=== PATIENT | female | born 1965 | race Hispanic/Latino ===

== ENCOUNTER 2017-05-12 09:00 | Inpatient (IN) | payer OTHER ==
[2017-05-07 09:32] VITALS: BP 142/72
[2017-05-07 09:43] LABS: EOSINOPHILS % (AUTO) 3.4 % (0.0-8.0); HEMATOCRIT 37.5 % (36-48); LYMPHOCYTES % (AUTO) 35.8 % (21.0-51.0); MEAN CORPUSCULAR HEMOGLOBIN 28.8 pg (27.0-33.0); MEAN CORPUSCULAR HGB CONC 34.9 g/dL (32.0-36.0); MEAN CORPUSCULAR VOLUME 82.5 fL (79-99); MONOCYTES % (AUTO) 5.7 % (3.0-13.0); NEUTROPHILS % (AUTO) 54.1 % (40.0-77.0); NUCLEATED RED BLOOD CELLS 0.1 % (0.0-0.19); PLATELET COUNT (AUTO) 287 K/uL (130-400); RED BLOOD CELL COUNT(AUTO) 4.55 MIL/uL (4.00-5.50); RED CELL DISTRIBUTION WIDTH 13.3 % (11.0-15.5); WHITE BLOOD COUNT (AUTO) 6.4 K/uL (4.8-10.8)
[2017-05-07 09:50] LABS: CREATININE 0.6 mg/dL (0.5-1.5); POTASSIUM 3.9 mmol/L (3.5-5.1)
[2017-05-12] VITALS (27 sets, daily range): BP systolic 101–140; BP diastolic 60–74
[~2017-05-12] VITALS: Ht 154.9 cm; Wt 89.2 kg
[~2017-05-12 09:00] MED LIST: ATOR40TA71 PO; INSLAN SQ; LOSA50TA37 PO; METF500T6 PO; SITA100T12 PO; SODIUM CHLORIDE 0.9% 1000ML 1,000 ML IV SCH; VANCOMYCIN 1GM+NS 250ML 250 ML IV SCH
[2017-05-12] MEDS ORDERED: CLINDAMYCIN 600 MG/D5% WATER 50 ML IV ONE ×2 (09:48→16:25)
[2017-05-12] MEDS ORDERED: GLYCOPYRROLATE 0.2 MG/ML 5 ML VIAL ONE (10:15)
[2017-05-12] MEDS ORDERED: LIDOCAINE PF 2% 5ML ABBOJECT ONE (10:15)
[2017-05-12] MEDS ORDERED: ONDANSETRON HCL 4 MG/2 ML VIAL ONE (10:15)
[2017-05-12] MEDS ORDERED: LIDOCAINE HCL MPF 1% 5ML VIAL ONE (10:15)
[2017-05-12] MEDS ORDERED: DEXAMETHASONE SOD PHOSPHATE 10MG/ML 1ML VIAL ONE (10:15)
[2017-05-12] MEDS ORDERED: MIDAZOLAM HCL 1 MG/ML 2ML VIAL ONE (10:16)
[2017-05-12] MEDS ORDERED: PROPOFOL 10 MG/ML 20ML VIAL IV ONE ×2 (10:16→14:35)
[2017-05-12] MEDS ORDERED: ROCURONIUM BROMIDE 10MG/1ML 5ML VL ONE ×2 (10:16→11:03)
[2017-05-12] MEDS ORDERED: SODIUM CHLORIDE 0.9% 10 ML VIAL ONE (10:16)
[2017-05-12] MEDS ORDERED: LIDOCAINE HCL 2% JELLY 5 ML ONE (10:16)
[2017-05-12] MEDS ORDERED: FENTANYL CITRATE PF 50 MCG/1 ML 2ML VIAL ONE ×2 (10:16→14:52)
[2017-05-12] MEDS ORDERED: FENTANYL CITRATE PF 50 MCG/1 ML 5ML AMP IV ONE (11:11)
[2017-05-12 14:43] LABS: HEMATOCRIT 32.8 % (36-48)
[2017-05-12 14:48] LABS: CREATININE 0.8 mg/dL (0.5-1.5); POTASSIUM 4.5 mmol/L (3.5-5.1)
[2017-05-12] MEDS ORDERED: MEPERIDINE-PF 50 MG/ML SYG ONE ×2 (15:12→15:37)
[2017-05-12] MEDS ORDERED: ONDANSETRON HCL 4 MG/2 ML VIAL IVP PRN (19:00)
[2017-05-12] MEDS ORDERED: MORPHINE SULFATE 4 MG/1ML SYG IVP PRN (19:00)
[2017-05-12] MEDS ORDERED: MORPHINE SULFATE 2 MG/ML 1ML SYG ONE (20:00)
[2017-05-13] MEDS: CLINDAMYCIN 600 MG/D5% WATER 50 ML IV SCH ×2 (01:39→08:46)
[2017-05-13] MEDS ORDERED: MORPHINE SULFATE 2 MG/ML 1ML SYG ONE (02:25)
[2017-05-13 04:00] VITALS: BP 128/65
[2017-05-13 05:44] LABS: HEMATOCRIT 28.8 % (36-48); MEAN CORPUSCULAR HEMOGLOBIN 29.3 pg (27.0-33.0); MEAN CORPUSCULAR HGB CONC 35.2 g/dL (32.0-36.0); MEAN CORPUSCULAR VOLUME 83.2 fL (79-99); PLATELET COUNT (AUTO) 261 K/uL (130-400); RED BLOOD CELL COUNT(AUTO) 3.47 MIL/uL (4.00-5.50); RED CELL DISTRIBUTION WIDTH 13.5 % (11.0-15.5); WHITE BLOOD COUNT (AUTO) 9.3 K/uL (4.8-10.8)
[2017-05-13 05:53] LABS: CREATININE 0.7 mg/dL (0.5-1.5); POTASSIUM 3.8 mmol/L (3.5-5.1)
[2017-05-13] MEDS ORDERED: CALDOLOR 800MG+NS 250ML 250 ML IV PRN (07:45)
[2017-05-13 08:20] VITALS: BP 142/70
[2017-05-13] MEDS: FAMOTIDINE/PF 20 MG/2 ML VIAL IV SCH ×2 (08:45→20:34)
[2017-05-13] MEDS: LOSARTAN 50 MG TABLET PO SCH (08:46)
[2017-05-13] MEDS: METFORMIN HCL 500 MG TABLET PO SCH ×2 (08:46→20:33)
[2017-05-13] MEDS: LINAGLIPTIN 5 MG TABLET PO SCH (08:49)
[2017-05-13] MEDS: TRAMADOL HCL 50 MG TABLET PO SCH ×3 (08:50→20:34)
[2017-05-13] MEDS: ENOXAPARIN SODIUM 40 MG/0.4 ML SYRINGE SQ SCH (09:58)
[2017-05-13 12:17] VITALS: BP 126/71
[2017-05-13 16:35] VITALS: BP 132/63
[2017-05-13] MEDS: LACTATED RINGERS 1000ML 1,000 ML IV SCH (19:24)
[2017-05-13 20:00] VITALS: BP 111/60
[2017-05-13] MEDS: ATORVASTATIN CALCIUM 40 MG TABLET PO SCH (20:33)
[2017-05-13] MEDS: INSULIN GLARGINE 100 UNITS/ML 10 ML VIAL SQ SCH (20:41)
[2017-05-13] MEDS: LEVOFLOXACIN 500 MG TABLET PO SCH (23:30)
[2017-05-13] MEDS ORDERED: LEVOFLOXACIN 500 MG TABLET ONE (23:37)
[2017-05-14] VITALS: BP 135/75
[2017-05-14] MEDS: TRAMADOL HCL 50 MG TABLET PO SCH ×4 (01:58→21:32)
[2017-05-14] MEDS: LACTATED RINGERS 1000ML 1,000 ML IV SCH ×2 (03:12→11:00)
[2017-05-14 04:00] VITALS: BP 124/66
[2017-05-14] MEDS ORDERED: MORPHINE SULFATE 8 MG/ML VIAL ONE (04:20)
[2017-05-14 07:00] VITALS: BP 118/71
[2017-05-14] MEDS: LINAGLIPTIN 5 MG TABLET PO SCH (08:41)
[2017-05-14] MEDS: METFORMIN HCL 500 MG TABLET PO SCH ×2 (08:41→21:32)
[2017-05-14] MEDS: FAMOTIDINE/PF 20 MG/2 ML VIAL IV SCH ×2 (08:41→21:32)
[2017-05-14] MEDS: LEVOFLOXACIN 500 MG TABLET PO SCH (08:42)
[2017-05-14] MEDS: LOSARTAN 50 MG TABLET PO SCH (08:42)
[2017-05-14] MEDS: ENOXAPARIN SODIUM 40 MG/0.4 ML SYRINGE SQ SCH (08:43)
[2017-05-14 11:00] VITALS: BP 123/69
[2017-05-14 16:00] VITALS: BP 111/70
[2017-05-14 20:41] VITALS: BP 121/61
[2017-05-14] MEDS: IBUPROFEN 800 MG TAB PO SCH (21:33)
[2017-05-14] MEDS: ATORVASTATIN CALCIUM 40 MG TABLET PO SCH (21:33)
[2017-05-14] MEDS: INSULIN GLARGINE 100 UNITS/ML 10 ML VIAL SQ SCH (21:38)
[2017-05-15 00:11] VITALS: BP 129/84
[2017-05-15 00:23] VITALS: BP 120/65
[2017-05-15] MEDS: TRAMADOL HCL 50 MG TABLET PO SCH ×3 (02:13→12:47)
[2017-05-15 04:56] VITALS: BP 130/72
[2017-05-15] MEDS: IBUPROFEN 800 MG TAB PO SCH (06:43)
[2017-05-15 07:00] VITALS: BP 123/69
[2017-05-15] MEDS: LINAGLIPTIN 5 MG TABLET PO SCH (08:35)
[2017-05-15] MEDS: FAMOTIDINE/PF 20 MG/2 ML VIAL IV SCH (08:35)
[2017-05-15] MEDS: LOSARTAN 50 MG TABLET PO SCH (08:35)
[2017-05-15] MEDS: LEVOFLOXACIN 500 MG TABLET PO SCH (08:36)
[2017-05-15] MEDS: METFORMIN HCL 500 MG TABLET PO SCH (08:36)
[2017-05-15] MEDS: ENOXAPARIN SODIUM 40 MG/0.4 ML SYRINGE SQ SCH (08:40)
[2017-05-15 11:00] VITALS: BP 125/64
== END 2017-05-15 17:05 | disposition home health service (06) | DRG 227 ==
LOC: DAH 09:00 → OBSVTOIN 09:01 → DAHIP 09:01 → 4AH 16:16
PROVIDERS: ADMIT Surgery; ATTEND Surgery
PROC: 0WUF0JZ Supplement Abdominal Wall with Synthetic Substitute, Open Approach (ICD-10-PCS; principal; 2017-05-15)
DX: K43.2 Incisional hernia without obstruction or gangrene (principal); E11.9 Type 2 diabetes mellitus without complications; I10 Essential (primary) hypertension; M79.3 Panniculitis, unspecified; Z90.49 Acquired absence of other specified parts of digestive tract; Z90.710 Acquired absence of both cervix and uterus; Z88.0 Allergy status to penicillin
CPT/HCPCS: 36415; 80048; 82948; 85025; 85027; A4344; C1781; J1100; J1650; J2001; J2175; J2250; J2270; J2405; J2704; J3010; J3490; J7030; J7120

== ENCOUNTER 2017-05-27 17:15 | Inpatient (IN) | payer OTHER ==
[~2017-05-27] VITALS: Ht 154.9 cm; Wt 86.2 kg
[~2017-05-27 17:15] MED LIST changes: -SODIUM CHLORIDE 0.9% 1000ML 1,000 ML IV SCH; -VANCOMYCIN 1GM+NS 250ML 250 ML IV SCH
[2017-05-27 18:41] LABS: BASOPHILS % (AUTO) 0.6 % (0.0-5.0); EOSINOPHILS % (AUTO) 2.9 % (0.0-8.0); HEMATOCRIT 26.7 % (36-48); LYMPHOCYTES % (AUTO) 15.8 % (21.0-51.0); MEAN CORPUSCULAR HEMOGLOBIN 28.6 pg (27.0-33.0); MEAN CORPUSCULAR HGB CONC 35.4 g/dL (32.0-36.0); MEAN CORPUSCULAR VOLUME 80.8 fL (79-99); MONOCYTES % (AUTO) 7.2 % (3.0-13.0); NEUTROPHILS % (AUTO) 73.5 % (40.0-77.0); PLATELET COUNT (AUTO) 554 K/uL (130-400); RED CELL DISTRIBUTION WIDTH 13.7 % (11.0-15.5); WHITE BLOOD COUNT (AUTO) 10.7 K/uL (4.8-10.8)
[2017-05-27] MEDS ORDERED: SODIUM CHLORIDE 0.9% 1000ML 3,000 ML IV ONE (18:55)
[2017-05-27 18:56] LABS: CREATININE 0.7 mg/dL (0.5-1.5); POTASSIUM 3.1 mmol/L (3.5-5.1)
[2017-05-27 19:01] LABS: ALBUMIN 2.2 g/dL (3.5-5.0); BILIRUBIN,TOTAL 0.1 mg/dL (0.2-1.0); TOTAL PROTEIN, SERUM 6.4 g/dL (6.0-8.3)
[2017-05-27] MEDS ORDERED: IOPAMIDOL-370 75 ML VIAL IV ONE (19:38)
[2017-05-27] MEDS ORDERED: LEVOFLOXACIN 750 MG/D5W 150 ML 150 ML IV ONE (21:59)
[2017-05-28] VITALS (7 sets, daily range): BP systolic 109–135; BP diastolic 63–75
[2017-05-28] MEDS ORDERED: HYDRALAZINE HCL 20 MG/ML VIAL IV PRN ×2 (00:30→08:00)
[2017-05-28] MEDS ORDERED: POTASSIUM CHLORIDE 10% ELIXIR 20 MEQ/15 ML UDCUP PO PRN (00:30)
[2017-05-28] MEDS ORDERED: MEROPENEM 500MG+NS 50ML 50 ML IV SCH ×2 (00:30→22:00)
[2017-05-28] MEDS ORDERED: SODIUM CHLORIDE 0.9% 1000ML 1,000 ML IV ONE (00:46)
[2017-05-28] MEDS ORDERED: MEROPENEM 500 MG VIAL ONE (00:47)
[2017-05-28] MEDS ORDERED: VANCOMYCIN 1GM+NS 250ML 250 ML IV ONE (00:47)
[2017-05-28 01:20] LABS: APPEARANCE,URINE Clear (CLEAR); BILIRUBIN,URINE Negative (NEGATIVE); COLOR,URINE Yellow (YELLOW); GLUCOSE, URINE (UA) Negative (NEGATIVE); KETONES,URINE 15 mg/dL (NEGATIVE); LEUKOCYTE ESTERASE ,URINE Negative (NEGATIVE); NITRATE,URINE Negative (NEGATIVE); OCCULT BLOOD,URINE Trace (NEGATIVE); PROTEIN,URINE Negative (NEGATIVE); UROBILINOGEN,URINE 0.2 mg/dL (0.2-1.0)
[2017-05-28 01:41] LABS: BACTERIA,URINE Few /HPF (None Seen); SQUAMOUS EPITHELIAL CELL,UR Moderate /LPF (0-2); WBC,URINE 0-1 /HPF (0-1)
[2017-05-28] MEDS: MEPERIDINE-PF 25 MG/ML SYG IVP PRN ×3 (02:27→22:26)
[2017-05-28] MEDS: INSULIN HUMULIN R 100 UNIT/ML 3ML SQ SCH ×4 (05:47→21:22)
[2017-05-28] MEDS: LIDOCAINE HCL-MPF 1% 2ML VIAL IVP PRN ×2 (06:05→13:41)
[2017-05-28] MEDS: POTASSIUM CHLORIDE 20MEQ/100ML 100 ML IV PRN ×2 (06:05→13:41)
[2017-05-28] MEDS ORDERED: GUAIFENESIN-DM 200/20 MG 10 ML PO PRN (08:00)
[2017-05-28] MEDS ORDERED: LACTULOSE 20 GM/30 ML UDCUP PO PRN (08:00)
[2017-05-28] MEDS ORDERED: NITROGLYCERIN 0.4 MG SL TAB SL PRN (08:00)
[2017-05-28] MEDS ORDERED: MAG HYDROX/AL HYDROX/SIMETH ES 30 ML SUSP UDCUP PO PRN (08:00)
[2017-05-28] MEDS ORDERED: MORPHINE SULFATE 2 MG/ML 1ML SYG IV PRN (08:00)
[2017-05-28] MEDS ORDERED: MORPHINE SULFATE 4 MG/1ML SYG IV PRN (08:00)
[2017-05-28] MEDS ORDERED: ACETAMINOPHEN 325 MG TAB PO PRN ×2 (08:00)
[2017-05-28] MEDS ORDERED: ACETAMINOPHEN-CODEINE 300/30MG TAB PO PRN ×2 (08:00)
[2017-05-28] MEDS: LOSARTAN 50 MG TABLET PO SCH (09:00)
[2017-05-28] MEDS ORDERED: FAMOTIDINE/PF 20 MG/2 ML VIAL IV SCH (09:00)
[2017-05-28] MEDS: ATORVASTATIN CALCIUM 40 MG TABLET PO SCH (09:00)
[2017-05-28] MEDS: SODIUM CHLORIDE 0.9% 1000ML 1,000 ML IV SCH ×3 (10:18→22:01)
[2017-05-28] MEDS: FAMOTIDINE/PF 20 MG/2 ML VIAL IV SCH ×2 (10:19→22:03)
[2017-05-28] MEDS: ONDANSETRON HCL 4 MG/2 ML VIAL IV PRN (13:41)
[2017-05-28] MEDS ORDERED: VANCOMYCIN PROTOCOL PER PHARMACY IV SCH (19:45)
[2017-05-28] MEDS ORDERED: COMPOUND IV REFRIGERATED 1 EACH IVSOLN MISC PRN (20:00)
[2017-05-28] MEDS: MEROPENEM 500 MG VIAL IVP SCH (22:01)
[2017-05-28] MEDS: VANCOMYCIN 1.25 GM in SODIUM CHLORIDE 0.9% 250 ML IV SCH (22:09)
[2017-05-29] MEDS: POTASSIUM CHLORIDE 20MEQ/100ML 100 ML IV PRN ×3 (00:28→15:12)
[2017-05-29 03:35] VITALS: BP 119/71
[2017-05-29 04:23] LABS: HEMATOCRIT 24.6 % (36-48); MEAN CORPUSCULAR HEMOGLOBIN 27.4 pg (27.0-33.0); MEAN CORPUSCULAR VOLUME 80.3 fL (79-99); PLATELET COUNT (AUTO) 555 K/uL (130-400); RED BLOOD CELL COUNT(AUTO) 3.06 MIL/uL (4.00-5.50); RED CELL DISTRIBUTION WIDTH 13.7 % (11.0-15.5); WHITE BLOOD COUNT (AUTO) 7.5 K/uL (4.8-10.8)
[2017-05-29 04:36] LABS: CREATININE 0.6 mg/dL (0.5-1.5); POTASSIUM 3.4 mmol/L (3.5-5.1)
[2017-05-29] MEDS: MEROPENEM 500 MG VIAL IVP SCH ×3 (05:09→21:48)
[2017-05-29] MEDS: SODIUM CHLORIDE 0.9% 1000ML 1,000 ML IV SCH (05:10)
[2017-05-29] MEDS: INSULIN HUMULIN R 100 UNIT/ML 3ML SQ SCH ×3 (06:00→17:25)
[2017-05-29 07:16] VITALS: BP 131/69
[2017-05-29] MEDS: FAMOTIDINE/PF 20 MG/2 ML VIAL IV SCH ×2 (08:19→21:48)
[2017-05-29] MEDS: LOSARTAN 50 MG TABLET PO SCH (08:19)
[2017-05-29] MEDS: ATORVASTATIN CALCIUM 40 MG TABLET PO SCH (08:19)
[2017-05-29 08:23] LABS: RETICULOCYTE % (AUTO) 2.52 % (0.42-2.23)
[2017-05-29 09:05] LABS: % IRON SATURATION 7.9 % (22-44)
[2017-05-29] MEDS: VANCOMYCIN 1.25 GM in SODIUM CHLORIDE 0.9% 250 ML IV SCH ×2 (10:34→22:02)
[2017-05-29 11:26] VITALS: BP 127/66
[2017-05-29] MEDS: ONDANSETRON HCL 4 MG/2 ML VIAL IV PRN (15:11)
[2017-05-29] MEDS: MEPERIDINE-PF 25 MG/ML SYG IVP PRN ×2 (15:11→21:47)
[2017-05-29] MEDS: LIDOCAINE HCL-MPF 1% 2ML VIAL IVP PRN (15:12)
[2017-05-29 16:00] VITALS: BP_SYST 128; BP_SYST 141; BP_DIAS 64; BP_DIAS 82
[2017-05-29 19:00] VITALS: BP 125/62
[2017-05-29] MEDS: INSULIN GLARGINE 100 UNITS/ML 10 ML VIAL SQ SCH (21:55)
[2017-05-29 23:15] VITALS: BP 123/67
[2017-05-30 03:20] VITALS: BP 118/70
[2017-05-30 03:49] LABS: HEMATOCRIT 23.7 % (36-48); MEAN CORPUSCULAR HEMOGLOBIN 28.4 pg (27.0-33.0); MEAN CORPUSCULAR HGB CONC 35.4 g/dL (32.0-36.0); MEAN CORPUSCULAR VOLUME 80.5 fL (79-99); PLATELET COUNT (AUTO) 542 K/uL (130-400); RED BLOOD CELL COUNT(AUTO) 2.94 MIL/uL (4.00-5.50); RED CELL DISTRIBUTION WIDTH 13.8 % (11.0-15.5); WHITE BLOOD COUNT (AUTO) 7.2 K/uL (4.8-10.8)
[2017-05-30 04:00] LABS: CREATININE 0.5 mg/dL (0.5-1.5); POTASSIUM 3.2 mmol/L (3.5-5.1)
[2017-05-30] MEDS: MEROPENEM 500 MG VIAL IVP SCH ×3 (05:06→21:21)
[2017-05-30] MEDS: POTASSIUM CHLORIDE 20MEQ/100ML 100 ML IV PRN (05:07)
[2017-05-30] MEDS: INSULIN HUMULIN R 100 UNIT/ML 3ML SQ SCH ×5 (06:00→21:00)
[2017-05-30 08:00] VITALS: BP_SYST 112; BP_SYST 144; BP_DIAS 69; BP_DIAS 78
[2017-05-30] MEDS: VANCOMYCIN 1.25 GM in SODIUM CHLORIDE 0.9% 250 ML IV SCH ×2 (09:16→21:27)
[2017-05-30] MEDS: FAMOTIDINE/PF 20 MG/2 ML VIAL IV SCH ×2 (09:17→21:21)
[2017-05-30] MEDS: MEPERIDINE-PF 25 MG/ML SYG IVP PRN ×2 (09:18→21:31)
[2017-05-30] MEDS: ATORVASTATIN CALCIUM 40 MG TABLET PO SCH (09:22)
[2017-05-30] MEDS: LOSARTAN 50 MG TABLET PO SCH (09:22)
[2017-05-30] MEDS: POTASSIUM CHLORIDE 20 MEQ ERTAB PO PRN ×2 (09:23→19:35)
[2017-05-30] MEDS: ENOXAPARIN SODIUM 40 MG/0.4 ML SYRINGE SQ SCH (09:28)
[2017-05-30 12:00] VITALS: BP 139/75
[2017-05-30 16:00] VITALS: BP 139/77
[2017-05-30 19:45] VITALS: BP 145/78
[2017-05-30] MEDS: INSULIN GLARGINE 100 UNITS/ML 10 ML VIAL SQ SCH (21:37)
[2017-05-30] MEDS ORDERED: INSULIN GLARGINE 100 UNITS/ML 10 ML VIAL SQ ONE (21:38)
[2017-05-30 23:59] VITALS: BP 125/65
[2017-05-31] MEDS: POTASSIUM CHLORIDE 20MEQ/100ML 100 ML IV PRN (00:31)
[2017-05-31 03:56] VITALS: BP 122/68
[2017-05-31 04:30] LABS: CREATININE 0.5 mg/dL (0.5-1.5); POTASSIUM 3.7 mmol/L (3.5-5.1)
[2017-05-31] MEDS: MEROPENEM 500 MG VIAL IVP SCH ×3 (05:13→20:45)
[2017-05-31] MEDS: INSULIN HUMULIN R 100 UNIT/ML 3ML SQ SCH ×4 (06:00→20:53)
[2017-05-31 08:00] VITALS: BP 146/74
[2017-05-31] MEDS: VANCOMYCIN 1.25 GM in SODIUM CHLORIDE 0.9% 250 ML IV SCH ×2 (10:01→20:58)
[2017-05-31] MEDS: FAMOTIDINE/PF 20 MG/2 ML VIAL IV SCH ×2 (10:02→20:45)
[2017-05-31] MEDS: LOSARTAN 50 MG TABLET PO SCH (10:05)
[2017-05-31] MEDS: ENOXAPARIN SODIUM 40 MG/0.4 ML SYRINGE SQ SCH (10:05)
[2017-05-31] MEDS: ATORVASTATIN CALCIUM 40 MG TABLET PO SCH (10:05)
[2017-05-31 11:56] VITALS: BP 127/73
[2017-05-31 16:00] VITALS: BP 124/70
[2017-05-31 19:30] VITALS: BP 130/74
[2017-05-31] MEDS ORDERED: MEPERIDINE HCL/PF 25 MG/ML 1ML VIAL IVP PRN (20:18)
[2017-05-31] MEDS: INSULIN GLARGINE 100 UNITS/ML 10 ML VIAL SQ SCH (20:52)
[2017-05-31] MEDS: MEPERIDINE HCL/PF 25 MG/0.5 ML AMPUL IVP PRN (20:58)
[2017-05-31] MEDS ORDERED: INSULIN GLARGINE 100 UNITS/ML 10 ML VIAL SQ ONE (22:03)
[2017-05-31 23:00] VITALS: BP 131/69
[2017-06-01 03:28] VITALS: BP 124/66
[2017-06-01] MEDS: MEROPENEM 500 MG VIAL IVP SCH ×3 (04:59→20:57)
[2017-06-01] MEDS: INSULIN HUMULIN R 100 UNIT/ML 3ML SQ SCH ×4 (06:00→21:13)
[2017-06-01 07:30] VITALS: BP 128/76
[2017-06-01] MEDS: VANCOMYCIN 1.25 GM in SODIUM CHLORIDE 0.9% 250 ML IV SCH ×2 (08:22→20:58)
[2017-06-01] MEDS: ENOXAPARIN SODIUM 40 MG/0.4 ML SYRINGE SQ SCH (08:24)
[2017-06-01] MEDS: ATORVASTATIN CALCIUM 40 MG TABLET PO SCH (08:25)
[2017-06-01] MEDS: FAMOTIDINE/PF 20 MG/2 ML VIAL IV SCH ×2 (08:25→20:57)
[2017-06-01] MEDS: LOSARTAN 50 MG TABLET PO SCH (08:25)
[2017-06-01] MEDS: MEPERIDINE HCL/PF 25 MG/0.5 ML AMPUL IVP PRN (08:26)
[2017-06-01 11:00] VITALS: BP 132/67
[2017-06-01 16:00] VITALS: BP 142/77
[2017-06-01 20:00] VITALS: BP_SYST 115; BP_SYST 138; BP_DIAS 59; BP_DIAS 74
[2017-06-01] MEDS: INSULIN GLARGINE 100 UNITS/ML 10 ML VIAL SQ SCH (20:59)
[2017-06-01 23:37] VITALS: BP 115/59
[2017-06-02] MEDS: MEROPENEM 500 MG VIAL IVP SCH ×2 (03:25→11:20)
[2017-06-02 04:22] VITALS: BP 113/70
[2017-06-02] MEDS: INSULIN HUMULIN R 100 UNIT/ML 3ML SQ SCH ×5 (07:30→22:20)
[2017-06-02 08:00] VITALS: BP 148/79
[2017-06-02] MEDS: FAMOTIDINE/PF 20 MG/2 ML VIAL IV SCH ×2 (10:01→20:20)
[2017-06-02] MEDS: ATORVASTATIN CALCIUM 40 MG TABLET PO SCH (10:01)
[2017-06-02] MEDS: LOSARTAN 50 MG TABLET PO SCH (10:01)
[2017-06-02] MEDS: ENOXAPARIN SODIUM 40 MG/0.4 ML SYRINGE SQ SCH (10:02)
[2017-06-02] MEDS: VANCOMYCIN 1.25 GM in SODIUM CHLORIDE 0.9% 250 ML IV SCH ×2 (10:03→20:20)
[2017-06-02] MEDS: MEPERIDINE HCL/PF 25 MG/0.5 ML AMPUL IVP PRN ×2 (10:05→20:21)
[2017-06-02 11:00] VITALS: BP 125/56
[2017-06-02 16:00] VITALS: BP 142/78
[2017-06-02 20:00] VITALS: BP 148/82
[2017-06-02] MEDS: INSULIN GLARGINE 100 UNITS/ML 10 ML VIAL SQ SCH (22:19)
[2017-06-03] VITALS: BP 126/72
[2017-06-03 03:50] LABS: HEMATOCRIT 24.7 % (36-48); MEAN CORPUSCULAR HEMOGLOBIN 27.8 pg (27.0-33.0); MEAN CORPUSCULAR HGB CONC 35.2 g/dL (32.0-36.0); MEAN CORPUSCULAR VOLUME 78.9 fL (79-99); PLATELET COUNT (AUTO) 468 K/uL (130-400); RED BLOOD CELL COUNT(AUTO) 3.13 MIL/uL (4.00-5.50); WHITE BLOOD COUNT (AUTO) 6.3 K/uL (4.8-10.8)
[2017-06-03 03:56] LABS: CREATININE 0.5 mg/dL (0.5-1.5); POTASSIUM 3.7 mmol/L (3.5-5.1)
[2017-06-03 04:00] VITALS: BP 119/66
[2017-06-03] MEDS: INSULIN HUMULIN R 100 UNIT/ML 3ML SQ SCH ×3 (06:12→16:21)
[2017-06-03] MEDS ORDERED: ACET1TAB12 PO (07:38)
[2017-06-03 07:59] VITALS: BP 140/66
[2017-06-03] MEDS: ATORVASTATIN CALCIUM 40 MG TABLET PO SCH (08:19)
[2017-06-03] MEDS: LOSARTAN 50 MG TABLET PO SCH (08:19)
[2017-06-03] MEDS: FAMOTIDINE/PF 20 MG/2 ML VIAL IV SCH (08:19)
[2017-06-03] MEDS: ENOXAPARIN SODIUM 40 MG/0.4 ML SYRINGE SQ SCH (08:20)
[2017-06-03] MEDS: VANCOMYCIN 1.25 GM in SODIUM CHLORIDE 0.9% 250 ML IV SCH (08:20)
[2017-06-03] MEDS: MEPERIDINE HCL/PF 25 MG/0.5 ML AMPUL IVP PRN (09:21)
[2017-06-03 11:00] VITALS: BP 126/67
[2017-06-03 16:00] VITALS: BP 140/75
== END 2017-06-03 17:16 | disposition home or self-care (01) | DRG 463 ==
LOC: EDH 17:15 → OBSVTOIN 22:10 → EDHIP 22:10 → 3AH 05-28 01:07
PROVIDERS: ADMIT Family Medicine; ATTEND Family Medicine
DX: N12 Tubulo-interstitial nephritis, not specified as acute or chronic (principal); L02.211 Cutaneous abscess of abdominal wall; K43.9 Ventral hernia without obstruction or gangrene; E11.9 Type 2 diabetes mellitus without complications; E78.5 Hyperlipidemia, unspecified; I10 Essential (primary) hypertension; Z68.35 Body mass index [BMI] 35.0-35.9, adult; E66.9 Obesity, unspecified; Z88.0 Allergy status to penicillin; M79.3 Panniculitis, unspecified; Z28.21 Immunization not carried out because of patient refusal
CPT/HCPCS: 36415; 74177; 80048; 80053; 80202; 81001; 82607; 82728; 82746; 82948; 83605; 84132; 85025; 85027; 87071; 87088; 87205; A4218; J1650; J1815; J1956; J2175; J2185; J2405; J3370; J3480; J3490; J7030; Q9967

== ENCOUNTER 2017-06-06 08:57 | Emergency (ER) | payer OTHER ==
[~2017-06-06 08:57] MED LIST changes: +ACET1TAB12 PO
[2017-06-06 09:33] LABS: APPEARANCE,URINE Clear (CLEAR); BILIRUBIN,URINE Negative (NEGATIVE); COLOR,URINE Yellow (YELLOW); GLUCOSE, URINE (UA) Negative (NEGATIVE); KETONES,URINE Negative (NEGATIVE); LEUKOCYTE ESTERASE ,URINE Trace (NEGATIVE); NITRATE,URINE Negative (NEGATIVE); OCCULT BLOOD,URINE Small (NEGATIVE); PROTEIN,URINE Trace (NEGATIVE); UROBILINOGEN,URINE 0.2 mg/dL (0.2-1.0)
[2017-06-06 09:34] LABS: BASOPHILS % (AUTO) 0.7 % (0.0-5.0); EOSINOPHILS % (AUTO) 4.8 % (0.0-8.0); HEMATOCRIT 30.7 % (36-48); LYMPHOCYTES % (AUTO) 19.6 % (21.0-51.0); MEAN CORPUSCULAR HEMOGLOBIN 26.2 pg (27.0-33.0); MEAN CORPUSCULAR HGB CONC 33.4 g/dL (32.0-36.0); MEAN CORPUSCULAR VOLUME 78.3 fL (79-99); NEUTROPHILS % (AUTO) 68.9 % (40.0-77.0); PLATELET COUNT (AUTO) 522 K/uL (130-400); RED BLOOD CELL COUNT(AUTO) 3.93 MIL/uL (4.00-5.50); RED CELL DISTRIBUTION WIDTH 14.2 % (11.0-15.5); WHITE BLOOD COUNT (AUTO) 6.8 K/uL (4.8-10.8)
[2017-06-06 09:37] LABS: CREATININE 0.6 mg/dL (0.5-1.5); POTASSIUM 3.9 mmol/L (3.5-5.1)
[2017-06-06 09:44] LABS: ALBUMIN 2.7 g/dL (3.5-5.0); BILIRUBIN,TOTAL 0.3 mg/dL (0.2-1.0); TOTAL PROTEIN, SERUM 7.3 g/dL (6.0-8.3)
[2017-06-06 10:09] LABS: BACTERIA,URINE Few /HPF (None Seen); SQUAMOUS EPITHELIAL CELL,UR 0-2 /LPF (0-2)
[2017-06-06] MEDS ORDERED: ONDANSETRON HCL 4 MG/2 ML VIAL ONE (10:33)
[2017-06-06] MEDS ORDERED: MEPERIDINE-PF 50 MG/ML SYG ONE (10:34)
[2017-06-06] MEDS ORDERED: IOPAMIDOL-370 75 ML VIAL IV ONE (11:01)
== END 2017-06-06 13:36 | disposition home or self-care (01) ==
LOC: EDH 08:57
DX: T81.89XA Other complications of procedures, not elsewhere classified, initial encounter (principal); E11.9 Type 2 diabetes mellitus without complications; E78.5 Hyperlipidemia, unspecified; I10 Essential (primary) hypertension; Z79.4 Long term (current) use of insulin; Z88.0 Allergy status to penicillin; Z90.710 Acquired absence of both cervix and uterus
CPT/HCPCS: 36415; 74177; 80053; 81001; 83605; 85025; 96374; 96375; 99285; J2175; J2405; Q9967

== ENCOUNTER 2017-06-06 16:41 | Inpatient (IN) | payer OTHER ==
[~2017-06-06] VITALS: Ht 154.9 cm; Wt 78.5 kg
[2017-06-06 18:21] LABS: BASOPHILS % (AUTO) 0.8 % (0.0-5.0); EOSINOPHILS % (AUTO) 3.6 % (0.0-8.0); HEMATOCRIT 30.3 % (36-48); LYMPHOCYTES % (AUTO) 22.6 % (21.0-51.0); MEAN CORPUSCULAR HEMOGLOBIN 26.9 pg (27.0-33.0); MEAN CORPUSCULAR HGB CONC 34.1 g/dL (32.0-36.0); MONOCYTES % (AUTO) 6.7 % (3.0-13.0); NEUTROPHILS % (AUTO) 66.3 % (40.0-77.0); NUCLEATED RED BLOOD CELLS 0.1 % (0.0-0.19); PLATELET COUNT (AUTO) 452 K/uL (130-400); RED BLOOD CELL COUNT(AUTO) 3.84 MIL/uL (4.00-5.50); RED CELL DISTRIBUTION WIDTH 14.2 % (11.0-15.5); WHITE BLOOD COUNT (AUTO) 7.4 K/uL (4.8-10.8)
[2017-06-06 18:29] LABS: CREATININE 0.7 mg/dL (0.5-1.5); POTASSIUM 3.9 mmol/L (3.5-5.1)
[2017-06-06 18:34] LABS: ALBUMIN 2.4 g/dL (3.5-5.0); BILIRUBIN,TOTAL 0.3 mg/dL (0.2-1.0); TOTAL PROTEIN, SERUM 7.1 g/dL (6.0-8.3)
[2017-06-06] MEDS ORDERED: SODIUM CHLORIDE 0.9% 100 ML IV ONE (18:49)
[2017-06-06] MEDS ORDERED: MEROPENEM 1 GM VIAL ONE (18:49)
[2017-06-06 21:18] VITALS: BP 141/89
[2017-06-06] MEDS ORDERED: MEPERIDINE HCL/PF 25 MG/0.5 ML AMPUL IVP PRN (22:45)
[2017-06-06] MEDS: MEPERIDINE-PF 25 MG/ML SYG IVP PRN (23:47)
[2017-06-07] VITALS (7 sets, daily range): BP systolic 114–150; BP diastolic 60–85
[2017-06-07 05:43] LABS: CREATININE 0.7 mg/dL (0.5-1.5)
[2017-06-07 05:45] LABS: HEMATOCRIT 25.5 % (36-48); MEAN CORPUSCULAR HEMOGLOBIN 28.1 pg (27.0-33.0); MEAN CORPUSCULAR HGB CONC 35.8 g/dL (32.0-36.0); MEAN CORPUSCULAR VOLUME 78.7 fL (79-99); NUCLEATED RED BLOOD CELLS 0.1 % (0.0-0.19); PLATELET COUNT (AUTO) 428 K/uL (130-400); RED BLOOD CELL COUNT(AUTO) 3.24 MIL/uL (4.00-5.50); RED CELL DISTRIBUTION WIDTH 14.2 % (11.0-15.5); WHITE BLOOD COUNT (AUTO) 6.7 K/uL (4.8-10.8)
[2017-06-07] MEDS: MEPERIDINE-PF 25 MG/ML SYG IVP PRN ×2 (08:32→18:15)
[2017-06-07] MEDS ORDERED: LIDOCAINE 1%-EPI 1:100,000 20 ML VIAL IJ SCH (12:00)
[2017-06-07] MEDS: MEROPENEM 1 GM VIAL IVP SCH (18:15)
[2017-06-07] MEDS ORDERED: GLUCAGON 1MG KIT 1 MG ML IM PRN (20:45)
[2017-06-07] MEDS: INSULIN GLARGINE 100 UNITS/ML 10 ML VIAL SQ SCH (20:45)
[2017-06-07] MEDS ORDERED: DEXTROSE 50%-WATER 50 ML DISP.SYRIN IV PRN (20:45)
[2017-06-07] MEDS: METFORMIN HCL 500 MG TABLET PO SCH (20:47)
[2017-06-07] MEDS: INSULIN HUMULIN R 100 UNIT/ML 3ML SQ SCH (20:47)
[2017-06-08 04:00] VITALS: BP 109/59
[2017-06-08] MEDS: MEPERIDINE-PF 25 MG/ML SYG IVP PRN ×3 (06:00→16:22)
[2017-06-08] MEDS: INSULIN HUMULIN R 100 UNIT/ML 3ML SQ SCH ×4 (06:22→20:43)
[2017-06-08 07:35] VITALS: BP 139/80
[2017-06-08] MEDS: LINAGLIPTIN 5 MG TABLET PO SCH (09:00)
[2017-06-08] MEDS: LOSARTAN 50 MG TABLET PO SCH (09:02)
[2017-06-08] MEDS: ATORVASTATIN CALCIUM 40 MG TABLET PO SCH (09:02)
[2017-06-08] MEDS: METFORMIN HCL 500 MG TABLET PO SCH ×2 (09:03→20:42)
[2017-06-08 11:11] VITALS: BP 139/88
[2017-06-08] MEDS: ONDANSETRON HCL 4 MG/2 ML VIAL IVP PRN (16:22)
[2017-06-08] MEDS: MEROPENEM 1 GM VIAL IVP SCH (16:22)
[2017-06-08 16:23] VITALS: BP 117/66
[2017-06-08 20:00] VITALS: BP 127/65
[2017-06-08] MEDS: INSULIN GLARGINE 100 UNITS/ML 10 ML VIAL SQ SCH (20:43)
[2017-06-09] VITALS: BP 126/59
[2017-06-09 04:00] VITALS: BP 116/58
[2017-06-09] MEDS: MEPERIDINE-PF 25 MG/ML SYG IVP PRN ×3 (05:33→19:54)
[2017-06-09] MEDS: INSULIN HUMULIN R 100 UNIT/ML 3ML SQ SCH ×4 (05:51→21:00)
[2017-06-09 06:05] LABS: HEMATOCRIT 30.4 % (36-48); MEAN CORPUSCULAR HEMOGLOBIN 27.5 pg (27.0-33.0); MEAN CORPUSCULAR HGB CONC 35.2 g/dL (32.0-36.0); MEAN CORPUSCULAR VOLUME 78.2 fL (79-99); PLATELET COUNT (AUTO) 546 K/uL (130-400); RED BLOOD CELL COUNT(AUTO) 3.88 MIL/uL (4.00-5.50); RED CELL DISTRIBUTION WIDTH 14.5 % (11.0-15.5); WHITE BLOOD COUNT (AUTO) 7.7 K/uL (4.8-10.8)
[2017-06-09 06:31] LABS: CREATININE 0.7 mg/dL (0.5-1.5); MAGNESIUM 1.9 mg/dL (1.80-2.40); PHOSPHORUS 3.8 mg/dL (2.5-4.9)
[2017-06-09 08:35] VITALS: BP 157/81
[2017-06-09] MEDS: LINAGLIPTIN 5 MG TABLET PO SCH (09:00)
[2017-06-09] MEDS: METFORMIN HCL 500 MG TABLET PO SCH ×2 (10:08→21:09)
[2017-06-09] MEDS: LOSARTAN 50 MG TABLET PO SCH (10:08)
[2017-06-09] MEDS: ATORVASTATIN CALCIUM 40 MG TABLET PO SCH (10:08)
[2017-06-09] MEDS: ONDANSETRON HCL 4 MG/2 ML VIAL IVP PRN (10:16)
[2017-06-09 11:51] VITALS: BP 142/80
[2017-06-09 16:40] VITALS: BP 131/72
[2017-06-09] MEDS: MEROPENEM 1 GM VIAL IVP SCH (17:32)
[2017-06-09 20:00] VITALS: BP 123/75
[2017-06-09] MEDS: INSULIN GLARGINE 100 UNITS/ML 10 ML VIAL SQ SCH (20:21)
[2017-06-10] VITALS: BP 110/52
[2017-06-10 04:00] VITALS: BP 99/70
[2017-06-10] MEDS: MEPERIDINE-PF 25 MG/ML SYG IVP PRN ×2 (06:02→20:59)
[2017-06-10] MEDS: INSULIN HUMULIN R 100 UNIT/ML 3ML SQ SCH ×6 (07:30→21:00)
[2017-06-10 08:00] VITALS: BP 126/77
[2017-06-10] MEDS: METFORMIN HCL 500 MG TABLET PO SCH ×2 (10:06→21:00)
[2017-06-10] MEDS: ATORVASTATIN CALCIUM 40 MG TABLET PO SCH (10:06)
[2017-06-10] MEDS: LOSARTAN 50 MG TABLET PO SCH (10:06)
[2017-06-10] MEDS: LINAGLIPTIN 5 MG TABLET PO SCH (10:06)
[2017-06-10 11:47] VITALS: BP 125/78
[2017-06-10 16:00] VITALS: BP 108/64
[2017-06-10] MEDS: MEROPENEM 1 GM VIAL IVP SCH (17:33)
[2017-06-10 20:00] VITALS: BP 113/61
[2017-06-10] MEDS: INSULIN GLARGINE 100 UNITS/ML 10 ML VIAL SQ SCH (21:11)
[2017-06-11] VITALS: BP 108/65
[2017-06-11 04:00] VITALS: BP 108/65
[2017-06-11] MEDS: MEPERIDINE-PF 25 MG/ML SYG IVP PRN (05:38)
[2017-06-11 07:30] VITALS: BP 142/74
[2017-06-11] MEDS: LINAGLIPTIN 5 MG TABLET PO SCH (09:31)
[2017-06-11] MEDS: ATORVASTATIN CALCIUM 40 MG TABLET PO SCH (09:31)
[2017-06-11] MEDS: LOSARTAN 50 MG TABLET PO SCH (09:31)
[2017-06-11] MEDS: METFORMIN HCL 500 MG TABLET PO SCH (09:31)
[2017-06-11 11:00] VITALS: BP 113/60
[2017-06-11] MEDS: INSULIN HUMULIN R 100 UNIT/ML 3ML SQ SCH (11:30)
[2017-06-11 16:00] VITALS: BP 114/72
[2017-06-11] MEDS: MEROPENEM 1 GM VIAL IVP SCH ×2 (17:00→18:28)
== END 2017-06-11 18:45 | disposition home health service (06) | DRG 711 ==
LOC: EDH 16:41 → EDHIP 17:05 → 4BH 21:06
PROVIDERS: ADMIT Surgery; ATTEND Surgery
PROC: 0W9F0ZZ Drainage of Abdominal Wall, Open Approach (ICD-10-PCS; principal; 2017-06-07)
DX: T81.4XXA Infection following a procedure, initial encounter (principal); L02.211 Cutaneous abscess of abdominal wall; E11.9 Type 2 diabetes mellitus without complications; I10 Essential (primary) hypertension; L03.311 Cellulitis of abdominal wall; Y83.8 Other surgical procedures as the cause of abnormal reaction of the patient, or of later complication, without mention of misadventure at the time of the procedure; E78.5 Hyperlipidemia, unspecified; Z88.0 Allergy status to penicillin; Z90.710 Acquired absence of both cervix and uterus; Y92.89 Other specified places as the place of occurrence of the external cause
CPT/HCPCS: 36415; 74177; 80048; 80053; 81001; 82948; 83605; 83735; 84100; 85025; 85027; 87040; 87070; 87076; 87106; 96374; 96375; A4218; J1815; J2175; J2185; J2405; J3490; Q9967

== ENCOUNTER 2017-07-16 19:25 | Emergency (ER) | payer OTHER ==
[~2017-07-16 19:25] MED LIST changes: -ACET1TAB12 PO
[2017-07-16] MEDS ORDERED: IPRATROPIUM/ALBUTEROL SULFATE 3 ML SOLUTION IH ONE (19:39)
[2017-07-16] MEDS ORDERED: DiphenhydrAMINE HCL 50 MG/ML VIAL ONE (19:40)
[2017-07-16] MEDS ORDERED: METHYLPREDNISOLONE SOD SUCC 125MG/2ML VIAL ONE (19:40)
[2017-07-16 19:41] LABS: BASOPHILS % (AUTO) 0.2 % (0.0-5.0); EOSINOPHILS % (AUTO) 0.1 % (0.0-8.0); HEMATOCRIT 34.5 % (36-48); LYMPHOCYTES % (AUTO) 14.1 % (21.0-51.0); MEAN CORPUSCULAR HEMOGLOBIN 24.7 pg (27.0-33.0); MEAN CORPUSCULAR VOLUME 74.8 fL (79-99); NEUTROPHILS % (AUTO) 82.6 % (40.0-77.0); PLATELET COUNT (AUTO) 393 K/uL (130-400); RED BLOOD CELL COUNT(AUTO) 4.61 MIL/uL (4.00-5.50); RED CELL DISTRIBUTION WIDTH 15.5 % (11.0-15.5); WHITE BLOOD COUNT (AUTO) 4.8 K/uL (4.8-10.8)
[2017-07-16] MEDS ORDERED: FAMOTIDINE 20MG TAB 20 MG TAB ONE (19:41)
[2017-07-16 19:55] LABS: POTASSIUM 5.1 mmol/L (3.5-5.1)
== END 2017-07-16 22:07 | disposition home or self-care (01) ==
LOC: EDH 19:25
DX: L50.0 Allergic urticaria (principal); E11.9 Type 2 diabetes mellitus without complications; E78.5 Hyperlipidemia, unspecified; I10 Essential (primary) hypertension; Z88.0 Allergy status to penicillin; Z98.890 Other specified postprocedural states
CPT/HCPCS: 36415; 80048; 85025; 93005; 94640; 96374; 96375; 99285; J1200; J2930

== ENCOUNTER → 2018-06-02 | Outpatient (CLI) | payer OTHER ==
[~2018-06-02] MED LIST changes: -LOSA50TA37 PO; +LOSA50TA64 PO; +METF-444 PO; -METF500T6 PO
== END | disposition home or self-care (01) ==
LOC: RAH 09:16
PROVIDERS: ATTEND Internal Medicine
DX: M16.11 Unilateral primary osteoarthritis, right hip (principal)
CPT/HCPCS: 73502

== ENCOUNTER → 2019-03-09 | Outpatient (CLI) | payer OTHER | END | disposition home or self-care (01) | LOC: RAH 07:50 | PROVIDERS: ATTEND Internal Medicine | DX: K76.0 Fatty (change of) liver, not elsewhere classified (principal); Z90.49 Acquired absence of other specified parts of digestive tract | CPT/HCPCS: 76700 ==

== ENCOUNTER → 2020-05-31 | Outpatient (CLI) | payer OTHER ==
[~2020-05-31] MED LIST changes: -INSLAN SQ; +INSU100I26 SQ; +LOSA25TA41 PO; -LOSA50TA64 PO
== END | disposition home or self-care (01) ==
LOC: RAH 10:41
PROVIDERS: ATTEND Internal Medicine
DX: M25.511 Pain in right shoulder (principal)
CPT/HCPCS: 73030; 73060

== ENCOUNTER → 2021-12-03 | Outpatient (CLI) | payer OTHER | END | disposition home or self-care (01) | LOC: RAH 07:30 | PROVIDERS: ATTEND Internal Medicine Gastroenterology | DX: R10.9 Unspecified abdominal pain (principal) | CPT/HCPCS: 78264; A9541 ==

== ENCOUNTER 2023-02-28 08:29 | Emergency (ER) | payer OTHER ==
[~2023-02-28] VITALS: Ht 154.9 cm; Wt 73.9 kg
[2023-02-28 09:00] LABS: HEMATOCRIT 37.9 % (36-48); MEAN CORPUSCULAR HEMOGLOBIN 27.6 pg (27.0-33.0); MEAN CORPUSCULAR VOLUME 83.7 fL (79-99); PLATELET COUNT (AUTO) 311 K/uL (130-400); RED BLOOD CELL COUNT(AUTO) 4.53 MIL/uL (4.00-5.50); RED CELL DISTRIBUTION WIDTH 13.2 % (11.0-15.5); WHITE BLOOD COUNT (AUTO) 12.8 K/uL (4.8-10.8)
[2023-02-28 09:06] LABS: APPEARANCE,URINE CLOUDY (CLEAR); BACTERIA,URINE RARE /HPF (None Seen); BILIRUBIN,URINE NEGATIVE (NEGATIVE); COLOR,URINE LIGHT-YELLOW (YELLOW); GLUCOSE, URINE (UA) NEGATIVE (NEGATIVE); KETONES,URINE NEGATIVE (NEGATIVE); LEUKOCYTE ESTERASE ,URINE 500 Leu/uL (NEGATIVE); MUCUS,URINE RARE LPF (None Seen); NITRATE,URINE NEGATIVE (NEGATIVE); OCCULT BLOOD,URINE LARGE (NEGATIVE); PH,URINE 5.5 (5.0-8.0); PROTEIN,URINE 30 mg/dL (NEGATIVE); SQUAMOUS EPITHELIAL CELL,UR RARE /HPF (0-2); UROBILINOGEN,URINE 0.2 mg/dL (0.2-1.0); WBC,URINE TNTC /HPF (0-1)
[2023-02-28 09:17] LABS: ALBUMIN 3.6 g/dL (3.5-5.0); BILIRUBIN,TOTAL 0.5 mg/dL (0.2-1.0); CREATININE 0.9 mg/dL (0.5-1.5); POTASSIUM 4.3 mmol/L (3.5-5.1)
[2023-02-28 09:45] LABS: EOSINOPHILS % (MANUAL) 1 % (1-6); LYMPHOCYTES % (MANUAL) 15 % (22-44); MAN.DIFF COMMENT-IMPRESSION MANUAL DIFFERENTIAL; PLATELET MORPHOLOGY COMMENT ADEQUATE; SEGMENTED NEUTROPHILS % 84 % (40-70); TOTAL CELLS COUNTED 100
[2023-02-28 11:14] VITALS: BP 122/82; PULSE 94; RESP 14; O2SAT 98
[2023-02-28] MEDS ORDERED: NITR100C PO (11:20)
== END 2023-02-28 12:09 | disposition home or self-care (01) ==
LOC: EDH 08:29
DX: N39.0 Urinary tract infection, site not specified (principal); I10 Essential (primary) hypertension; E11.9 Type 2 diabetes mellitus without complications; E78.00 Pure hypercholesterolemia, unspecified; Z79.84 Long term (current) use of oral hypoglycemic drugs; Z79.899 Other long term (current) drug therapy; Z88.0 Allergy status to penicillin; Z88.1 Allergy status to other antibiotic agents; Z88.2 Allergy status to sulfonamides; Z90.49 Acquired absence of other specified parts of digestive tract
CPT/HCPCS: 36415; 74176; 80053; 81001; 82550; 85025; 87088

== ENCOUNTER 2024-09-23 16:28 | Emergency (ER) | payer OTHER ==
[~2024-09-23] VITALS: Ht 154.9 cm; Wt 73.5 kg
[~2024-09-23 16:28] MED LIST changes: +NITR100C PO
--- NOTE | 2024-09-23 16:36 | ERN ---
ED Note History of Present Illness Stated Complaint: PAIN IN BACK RUNNING DOWN LT LEG,NUMBNESS Chief Complaint: Lower Extremity Pain/Injury Time Seen by MD: 16:29 Dictation: PATIENT IS A 59-YEAR-OLD FEMALE COMING IN TODAY WITH A SPONTANEOUS ONSET OF LEFT LOW BACK PAIN WITH SCIATICA DOWN THE LEFT LEG SINCE FRIDAY. SHE DENIES ANY TRAUMA OR ANY PRIOR SURGERIES OR INJURIES. SHE STATES SHE HAS NOT HAD ANY FALLS. SHE DENIES ANY CHANGE IN BOWEL OR BLADDER FUNCTION. SHE SAW ON FRIDAY AND HE TOLD HER IT WAS SCIATICA, GAVE HER IBUPROFEN. THEY SAID HAS NOT HELPED AND SHE IS HERE FOR FURTHER EVALUATION AND TREATMENT. Allergies: Coded Allergies: Penicillins (Unverified Allergy, Unknown, 05/07/17) sulfamethoxazole (Unverified Allergy, Unknown, 09/17/19) trimethoprim (Unverified Allergy, Unknown, 09/17/19) Home Meds Active Scripts Cyclobenzaprine HCl (Cyclobenzaprine HCl) 10 Mg Tablet, 1 TAB PO TID for muscle spasms for 10 Days, #30 TAB 0 Refills Prov:KASSANDRA NUNEZ NP 09/23/24 Ibuprofen (Ibuprofen 800 mg Tab) 800 Mg Tab, 800 MG PO Q8H PRN for fever or pain, #30 TAB 0 Refills Prov:KASSANDRA NUNEZ NP 09/23/24 Nitrofurantoin Macrocrystal (Nitrofurantoin) 100 Mg Capsule, 100 MG PO BID for 7 Days, #14 CAP Prov:ROXANNE VILLASEÑOR MD 02/28/23 Reported Medications Insulin Glargine,Hum.rec.anlog (Basaglar Kwikpen U-100) 100 Unit/1 Ml Insuln.pen, 20 UNIT SQ HS, SYRINGE 09/17/19 Losartan Potassium (Losartan Potassium) 25 Mg Tablet, 25 MG PO DAILY, TAB 09/17/19 Atorvastatin Calcium (Atorvastatin Calcium) 40 Mg Tablet, 40 MG PO DAILY, TAB 05/07/17 Sitagliptin Phosphate (Januvia) 100 Mg Tablet, 100 MG PO DAILY, TAB 05/07/17 Metformin HCl (Metformin HCl) 500 Mg Tablet, 1000 MG PO BID, TAB 05/07/17 Past Medical History Past Medical History: Cancer, Diabetes-Type II, High Cholesterol, Hypertension Additional Past Medical Hx: IRREGULAR HR, VULVA CA Surgical History: Hysterectomy, Cholecystectomy Surgical History Other: VULVA SX, HERNIA REPAIR, BIOPSY L BREAST History: Not Applicable RN Note Reviewed/Agreed w/PFSH: Yes Review of System Dictation CONSTITUTIONAL: NEGATIVE EXCEPT FOR HPI HEAD/FACE: NEGATIVE EXCEPT FOR HPI EENT: NEGATIVE EXCEPT FOR HPI RESPIRATORY: NEGATIVE EXCEPT FOR HPI GASTROINTESTINAL/ABDOMINAL: NEGATIVE EXCEPT FOR HPI LEFT LATERAL LUMBOSACRAL PAIN TENDERNESS. GENITOURINARY: NEGATIVE EXCEPT FOR HPI MUSCULOSKELETAL: NEGATIVE EXCEPT FOR HPI INTEGUMENTARY: NEGATIVE EXCEPT FOR HPI NEUROLOGICAL/PSYCH: NEGATIVE EXCEPT FOR HPI HEMATOLOGIC/LYMPHATIC: NEGATIVE EXCEPT FOR HPI ALL SYSTEMS NEGATIVE, EXCEPT NOTED ABOVE. 13 POINT REVIEW OF SYSTEMS ASSESSED AND ALL NEGATIVE EXCEPT FOR ABOVE. Initial Vital Sign VS Vital Signs Date Time Temp Pulse Resp B/P (MAP) Pulse Ox O2 Delivery O2 Flow Rate FiO2 09/23/24 16:32 98.6 92 16 178/90 99 Room Air 0 09/23/24 16:37 21 Physical Exam Dictation VITAL SIGNS REVIEWED GENERAL APPEARANCE: ALERT, ORIENTED X 3, MODERATE ACUTE DISTRESS, WELL DEVELOPED, NOURISHED. HEAD AND FACE: NON-TRAUMATIC. EYES: PERRL, PINK CONJUNCTIVAS, EYELID NO TRAUMA, ANTERIOR CHAMBER WITH ARCUS SENILIS. EARS: PINNAS INTACT AND NO SIGNS OF TRAUMA OR ERYTHEMA EAR CANALS CLEAR AND NO DISCHARGE TM NO ERYTHEMA NOSE: NO DISCHARGE, NO BLEEDING. OROPHARYNX: MOUTH NORMAL, TONGUE PINK, PHARYNX CLEAR,NO ERYTHEMA, TONSILS NO EXUDATES, NO ABSCESSES NOTED, MUCOUS MEMBRANE MOIST NECK: SUPPLE, NON-TENDER, NO THYROMEGALY, NO MASSES, NO JVD, NO BRUITS BREAST:DEFERRED CHEST:NO TENDERNESS, NO CREPITUS, NO PARADOXICAL MOVEMENT, NO RETRACTIONS LUNGS:CLEAR, WELL-VENTILATED, SYMMETRIC, NO RALES, NO WHEEZING, NO RHONCHI, NO STRIDOR, GOOD BREATH SOUNDS BILATERALLY HEART: REGULAR RATE, REGULAR RHYTHM, NO MURMUR, NO GALLOPS VASCULAR: NO PERIPHERAL EDEMA, ABDOMEN: SOFT, POSITIVE BOWEL SOUNDS, NONDISTENDED, NO GUARDING, NONTENDER, NO REBOUND, NO MASSES NO HEPATOMEGALY, NO SPLENOMEGALY, NO MARTINEZ'S SIGN, NO HERNIAS. RECTAL: DEFERRED GENITAL: DEFERRED NEUROLOGICAL: NORMAL SPEECH, MOTOR FUNCTION INTACT, SENSORY FUNCTION INTACT MUSCULOSKELETAL: NECK NONTENDER, FULL RANGE OF MOTION, LEFT LATERAL LUMBOSACRAL TENDERNESS WITH PALPATION. NO STEP-OFF POSITIVE STRAIGHT LEG RAISE BILATERALLY TO 10 LEFT EXTREMITIES: NONTENDER, FULL RANGE OF MOTION SKIN: COLOR PINK, DRY, NO TURGOR, NO RASH, NO LACERATIONS, NO ABRASIONS, NO CONTUSIONS. LYMPHATIC: DEFERRED Results (Laboratory/Radiology) Laboratory/Radiology LUMBOSACRAL X-RAY DEMONSTRATES SEVERE DEGENERATIVE CHANGES. Labs Reviewed?: Yes ED Course ED Course Orders Procedure Category Date Status Time Cyclobenzaprine Hcl PHA 09/23/24 Complete (Cyclobenzaprine Hcl 17:00 Dexamethasone 4mg/Ml PHA 09/23/24 Complete 1ml Vial (Dexametha 17:00 Ketorolac 60mg/2ml PHA 09/23/24 Complete (Toradol 60mg/2ml) 17:00 Acetaminophen With PHA 09/23/24 Complete Codeine (Tylenol-Code 17:00 Lumbar Spine 2-3vws RAD 09/23/24 Taken 16:32 Current Medications Medications (Trade) Dose Ordered Sig/Liz Route PRN Reason Start Time Stop Time Status Last Admin Dose Admin Acetaminophen/ Codeine Phosphate (TYLenol-coDEINE TAB) 2 tab ONCE ONCE PO 09/23/24 17:00 09/23/24 17:01 DC 09/23/24 16:48 Cyclobenzaprine HCl (Cyclobenzaprine HCl) 10 mg ONCE ONCE PO 09/23/24 17:00 09/23/24 17:01 DC 09/23/24 16:47 Dexamethasone Sodium Phosphate (dexaMETHasone 4MG/ML 1ML VIAL) 8 mg ONCE ONCE IM 09/23/24 17:00 09/23/24 17:01 DC 09/23/24 16:46 Ketorolac Tromethamine (toRADol 60MG/ 2ML) 60 mg ONCE ONCE IM 09/23/24 17:00 09/23/24 17:01 DC 09/23/24 16:47 Vital Signs Date Time Temp Pulse Resp B/P (MAP) Pulse Ox O2 Delivery O2 Flow Rate FiO2 09/23/24 16:37 98.6 90 16 175/85 99 Room Air* 0 21 09/23/24 16:32 98.6 92 16 178/90 99 Room Air 0 1728/PATIENT STATES PAIN IS MARKEDLY IMPROVED AFTER TREATMENT. WE WILL BE DISCHARGED HOME WITH LUMBOSACRAL DEGENERATIVE CHANGES WITH SCIATICA. TOLD TO SEE HER PRIMARY CARE DOCTOR FOR REFERRAL TO NEUROSURGERY Medical Decision Making MDM MEDICAL DECISION-MAKING EMPIRIC TREATMENT FOR LUMBOSACRAL PAIN AND SCIATICA. PLAIN X-RAY DEMONSTRATES SEVERE DEGENERATIVE CHANGES PATIENT DISCHARGED HOME WITH IBUPROFEN AND FLEXERIL TOLD TO SEE HER PRIMARY CARE DOCTOR FOR MRI AND REFERRAL TO NEUROSURGERY DX & DISP Disposition: Discharge Departure Impression: Primary Impression: DJD (degenerative joint disease), lumbosacral Additional Impression: Acute left-sided back pain with sciatica Condition: Stable Scripts Cyclobenzaprine HCl (Cyclobenzaprine HCl) 10 Mg Tablet 1 TAB PO TID for muscle spasms for 10 Days, #30 TAB 0 Refills Prov: KASSANDRA NUNEZ NP 09/23/24 Ibuprofen (Ibuprofen 800 mg Tab) 800 Mg Tab 800 MG PO Q8H PRN for fever or pain, #30 TAB 0 Refills Prov: KASSANDRA NUNEZ NP 09/23/24 Additional Instructions: FOLLOW-UP WITH PRIMARY CARE PROVIDER IN 1 TO 2 DAYS. TAKE MEDICATIONS DIRECTED HERE IN THE EMERGENCY ROOM. OKAY TO CONTINUE HOME MEDICATIONS UNLESS OTHERWISE DISCUSSED DURING YOUR VISIT IN THE EMERGENCY ROOM TODAY. RETURN TO YOUR NEAREST EMERGENCY ROOM IF SYMPTOMS WORSEN OR IF THERE IS NO IMPROVEMENT. CALL 911 IF YOU NEED IMMEDIATE ASSISTANCE. TAKE TYLENOL OR MOTRIN [id number] NEEDED AND IF NO CONTRAINDICATIONS ARE PRESENT. INCREASE ORAL HYDRATION. A WOUND CULTURE OR URINE CULTURE WAS ORDERED HERE IN THE EMERGENCY ROOM DEPARTMENT PLEASE FOLLOW-UP WITH PRIMARY CARE PROVIDER AND ADVISE THEM TO GET REPEAT PORTS FROM OUR FACILITY. IF YOU HAD ANY DAISHA WRAP/SPLINTS THAT WERE APPLIED HERE, PLEASE DO NOT REMOVE THEM UNTIL YOU SEE YOUR PRIMARY CARE OR SPECIALTY. TAKE IBUPROFEN AND FLEXERIL EVERY 8 HOURS WITH FOOD FOR THE NEXT THREE DAYS. FOLLOW UP WITH YOUR PRIMARY CARE DOCTOR FOR RECOMMENDED MRI AND NEUROSURGICAL REFERRAL OR PHYSICAL THERAPY. Referrals: MAAME RAMIREZ MD (PCP) Time of Disposition: 17:29 I have reviewed the case, and I agree with, Diagnosis and Plan KASSANDRA NUNEZ NP Sep 23, 2024 16:36 IBIS CLARKE DO Sep 23, 2024 18:09
[2024-09-23 16:37] VITALS: BP 175/85; PULSE 90; RESP 16; TEMP 98.6; O2SAT 99
[2024-09-23] MEDS: dexaMETHasone SOD PHOSPHATE 4 MG/ML 1ML VIAL IM ONE (16:46)
[2024-09-23] MEDS: ketOROlac 60 MG VIAL (30MG/ML) IM ONE (16:47)
[2024-09-23] MEDS: CYCLOBENZAPRINE HCL 10 MG TABLET PO ONE (16:47)
[2024-09-23] MEDS: acetaMINOPHEN WITH coDEINE 1 TAB TAB PO ONE (16:48)
[2024-09-23] MEDS ORDERED: IBUP-2077 PO (17:30)
[2024-09-23] MEDS ORDERED: CYCL-309 PO (17:30)
--- NOTE | 2024-09-23 17:38 | NUR ---
UNABLE TO DEPART DUE TO REGISTRATION PROCESS
--- NOTE | 2024-09-24 17:01 | HMCIMG ---
LUMBAR SPINE 2-3VWS HISTORY: Pain COMPARISON: None FINDINGS: 3 images of the lumbar spine were obtained. There is scoliosis. There is lumbar spine spondylosis. There is straightening of normal lordotic curvature which may be related to muscle spasm or positioning. No loss of vertebral height is seen. No fracture or dislocation is seen. Degenerative changes are seen. IMPRESSION: 1. No fracture is seen.
== END 2024-09-23 17:38 | disposition home or self-care (01) ==
LOC: EDH 16:28
DX: M47.817 Spondylosis without myelopathy or radiculopathy, lumbosacral region (principal); M54.42 Lumbago with sciatica, left side; E11.9 Type 2 diabetes mellitus without complications; E78.00 Pure hypercholesterolemia, unspecified; I10 Essential (primary) hypertension; Z79.84 Long term (current) use of oral hypoglycemic drugs; Z79.899 Other long term (current) drug therapy; Z88.0 Allergy status to penicillin; Z88.1 Allergy status to other antibiotic agents; Z88.2 Allergy status to sulfonamides; Z90.49 Acquired absence of other specified parts of digestive tract; Z90.710 Acquired absence of both cervix and uterus; Z98.890 Other specified postprocedural states
CPT/HCPCS: 99284; 72100; 96372 ×2; J1100; J1885